=== PATIENT | female | born 1950 | race Caucasian/White ===

== ENCOUNTER 2018-06-18 07:26 | Inpatient (IN) | payer MEDICARE, OTHER, MEDICAID ==
[~2018-06-18] VITALS: Ht 157.5 cm; Wt 73.1 kg
[2018-06-18] VITALS (12 sets, daily range): BP systolic 114–172; BP diastolic 59–93
[2018-06-18 07:47] LABS: URINE BILIRUBIN NEGATIVE (Negative); URINE BLOOD NEGATIVE (Negative); URINE CLARITY CLEAR; URINE COLOR YELLOW; URINE GLUCOSE-RANDOM NEGATIVE (Negative); URINE KETONES NEGATIVE (Negative); URINE LEUKOCYTES-REFLEX NEGATIVE (Negative); URINE NITRITE-REFLEX NEGATIVE (Negative); URINE PROTEIN NEGATIVE (Negative); URINE SPECIFIC GRAVITY <= 1.005 (1.005-1.030); URINE UROBILINOGEN 0.2 E.U./dl (0.2-1.0)
[2018-06-18] MEDS ORDERED: ALDACTONE100 MG PO (08:10)
[2018-06-18] MEDS ORDERED: ASPIR 8181 MG PO (08:10)
[2018-06-18] MEDS ORDERED: LASIX 40 MG TAB40 M2 PO (08:11)
[2018-06-18 08:12] LABS: BE 3.7 mmol/L (-2 to +3); PCO2 26.6 mmHg (35.0-45.0); PO2 92.9 mmHg (75.0-100.0); pH 7.592 (7.340-7.450)
[2018-06-18] MEDS ORDERED: DILTIAZEM ER120 M1 PO (08:12)
[2018-06-18] MEDS ORDERED: XIFAXAN550 M1 PO (08:12)
[2018-06-18] MEDS ORDERED: FOLIC ACID1 MG PO (08:16)
[2018-06-18] MEDS ORDERED: PEPCID40 MG PO (08:16)
[2018-06-18] MEDS ORDERED: LACTULOSE10 GM/152 PO (08:17)
[2018-06-18] MEDS ORDERED: TYLENOL325 MG PO (08:18)
[2018-06-18] MEDS ORDERED: NORCO 5-325 TA1 EACH PO (08:19)
[2018-06-18] MEDS ORDERED: VITAMINC500 PO (08:19)
[2018-06-18 08:20] LABS: ABSOLUTE LYMPHOCYTES 0.8 thou/uL (0.8-5.3); ABSOLUTE MONOCYTES 0.9 thou/uL (0.0-1.2); ABSOLUTE NEUTROPHILS 6.8 thou/uL (1.6-8.1); BASOPHILS 0.6 %; EOSINOPHILS 0.2 %; HEMATOCRIT 27.1 % (37.0-47.0); HEMOGLOBIN 8.9 gm/dL (12.0-15.0); LYMPHOCYTES 9.7 %; MCH 33.7 pg (26.0-34.0); MCV 101.9 fL (80.0-100.0); MONOCYTES 10.3 %; MPV 10.9 fl. (7.2-11.1); NUCLEATED RBCS 0 /100WBC; PLATELET COUNT* 155 thou/uL (150-400); POLYS 79.2 %; RBC 2.66 mil/uL (4.20-5.00); RDW-CV 24.3 % (10.5-14.5); WBC 8.6 thou/uL (4.0-11.0)
[2018-06-18] MEDS ORDERED: MAGIC MOUTHWASH SWISH&SPIT (08:23)
[2018-06-18] MEDS ORDERED: JUVEN PACKET1 EAC1 PO (08:24)
[2018-06-18 08:54] LABS: ALBUMIN 3.3 g/dL (3.4-5.0); CALCIUM 9.6 mg/dL (8.5-10.1); CREATININE 1.5 mg/dL (0.6-1.3); PHOSPHORUS* 3.6 mg/dL (2.5-4.9); POTASSIUM 3.8 mmol/L (3.5-5.1); TOTAL BILIRUBIN 4.7 mg/dL (<0.1-1.0); TOTAL PROTEIN 6.5 g/dL (6.4-8.2)
[2018-06-18 09:08] LABS: PLATELET ESTIMATE ADEQUATE
[2018-06-18 09:09] LABS: ANISOCYTOSIS 1+; MACROCYTES 1+; POIKILOCYTOSIS 1+
[2018-06-18 09:11] LABS: APTT 48.3 Seconds (25.0-31.3); INR 1.7; PROTIME 17.3 Seconds (9.20-11.50)
--- NOTE | 2018-06-18 10:54 | NUR ---
CENTRAL LINE PLACED BY DR. CALLE AND PLACEMENT WAS VERIFIED VIA XRAY.
--- NOTE | 2018-06-18 10:56 | NUR ---
ED RN JADON HAS GIVEN REPORT TO ICU. PT TO BE ADMITTED IN ICU ROOM 2. PT IS NOW IN ULTRASOUND, AND [employer] CARMELA WILL TAKE PT TO ICU 2 WHEN FINISHED.
--- NOTE | 2018-06-18 11:23 | NUR ---
Report received from ED nurse. Patient in US then going to CT before arriving to unit.
--- NOTE | 2018-06-18 16:36 | EKG ---
[place] [address] ELECTROCARDIOGRAM REPORT Name: LEONARD CHE Room: [address] ADM IN M.R.#: [id number] Admission: 06/18/18 Attend Phys: Rossy Mix MD Discharge: Date of : 52 Report #: [id number] THIS REPORT FOR: //name// [facility] ED Test Date: 2018-06-18 Test Time: 07:35:11 Pat Name: LEONARD CHE Department: Room: [facility] Gender: F Window And Siding Craftsman: Rachelle CHAVES : 1950 Requested By: Mee Pereyra Order Number: [id number] MD: Romel Wetzel Measurements Intervals [place] Rate: 97 P: 70 NH: 164 QRS: -45 QRSD: 133 T: 88 QT: 387 QTc: 492 Interpretive Statements Sinus tachycardia Ventricular premature complex RBBB and LAFB Abnrm T, consider ischemia, anterolateral lds No previous ECG available for comparison Electronically Signed On 06-18-2018 16:36:12 CDT by Romel Wetzel [email or web address] <ELECTRONICALLY SIGNED> By: oRmel Wetzel MD, [facility] 06/18/18 1636 [id number] 0735 Romel Wetzel MD, [facility] /EPI
[2018-06-18 16:49] LABS: BF RBC <1000 /mm3; TOTAL CELL COUNT 89 /mm3
[2018-06-18 16:55] LABS: AMYLASE 11 U/L (25-115); LIPASE 24 U/L (73-393)
[2018-06-18 16:57] LABS: CLARITY SLIGHTLY HAZY; TOTAL VOLUME 1550 ml
--- NOTE | 2018-06-18 17:00 | NUR ---
RECIEVED REPORT FROM BETH BOWER AT 5384. PATIENT REMAINS CONFUSED, DOES NOT FOLLOW COMMANDS. THIS RN AGREES WITH PREVIOUS ASSESSMENT.
[2018-06-18 17:01] LABS: BF LYMPHOCYTES 40 %; BF MONOCYTES 14 %; BF POLYS 46 %; BF TISSUE 13 /100 WBC
[2018-06-18 17:03] LABS: SOURCE ASCITES
[2018-06-19] VITALS (20 sets, daily range): BP systolic 109–160; BP diastolic 65–92
[2018-06-19 04:07] LABS: ABSOLUTE LYMPHOCYTES 0.9 thou/uL (0.8-5.3); ABSOLUTE MONOCYTES 0.6 thou/uL (0.0-1.2); ABSOLUTE NEUTROPHILS 4.7 thou/uL (1.6-8.1); BASOPHILS 0.4 %; EOSINOPHILS 0.2 %; HEMATOCRIT 22.6 % (37.0-47.0); HEMOGLOBIN 7.6 gm/dL (12.0-15.0); LYMPHOCYTES 13.7 %; MCH 34.3 pg (26.0-34.0); MCHC 33.8 g/dL (28.0-37.0); MCV 101.5 fL (80.0-100.0); MONOCYTES 9.7 %; MPV 10.9 fl. (7.2-11.1); NUCLEATED RBCS 0 /100WBC; PLATELET COUNT* 126 thou/uL (150-400); RBC 2.23 mil/uL (4.20-5.00); RDW-CV 24.5 % (10.5-14.5); WBC 6.3 thou/uL (4.0-11.0)
[2018-06-19 04:54] LABS: ALBUMIN 2.9 g/dL (3.4-5.0); CALCIUM 8.6 mg/dL (8.5-10.1); CREATININE 1.4 mg/dL (0.6-1.3); DIRECT BILIRUBIN 1.5 mg/dL (<0.1-0.3); POTASSIUM 3.3 mmol/L (3.5-5.1); TOTAL BILIRUBIN 3.7 mg/dL (<0.1-1.0); TOTAL PROTEIN 5.5 g/dL (6.4-8.2)
--- NOTE | 2018-06-19 06:34 | NUR ---
REPORT RECEIVED FROM OFF GOING SHIFT, AND CARE ASSUMMED. PT HAS EYES OPEN DOES NOT RESPOND TO COMMANDS, AND CONSTANTLY MOANS. AARON INTACT AND PATENT DRAINING ORANGE URINE TO BEDSIDE BAG. MONITORS INTACT WITH ALARMS SET. NO CHANGE DURING SHIFT. WILL CONTINUE TO MONITOR
[2018-06-19 06:55] LABS: ANISOCYTOSIS 2+; PLATELET ESTIMATE DECREASED
--- NOTE | 2018-06-19 17:54 | NUR ---
PATIENT BEGINNING TO HAVE LOOSE, LIGHT BROWN, CHUNKY/SOFT STOOLS THIS SHIFT AFTER LACTULOSE ADMINISTRATION. REMAINS CONFUSED, NONVERBAL AT THIS TIME. SON UPDATED BY HOSPITALIST AND GASTROINTESTINAL PHYSICIAN. NO NEW CONCERNS VOICED. HEAD CT COMPLETED TODAY, NEGATIVE.
[2018-06-20] VITALS (26 sets, daily range): BP systolic 117–171; BP diastolic 72–103
[2018-06-20 03:44] LABS: ABSOLUTE LYMPHOCYTES 1.1 thou/uL (0.8-5.3); ABSOLUTE MONOCYTES 0.6 thou/uL (0.0-1.2); ABSOLUTE NEUTROPHILS 3.8 thou/uL (1.6-8.1); BASOPHILS 0.7 %; EOSINOPHILS 0.6 %; HEMATOCRIT 23.8 % (37.0-47.0); HEMOGLOBIN 7.9 gm/dL (12.0-15.0); LYMPHOCYTES 19.2 %; MCH 34.1 pg (26.0-34.0); MCHC 33.1 g/dL (28.0-37.0); MCV 102.8 fL (80.0-100.0); MONOCYTES 10.6 %; MPV 10.7 fl. (7.2-11.1); NUCLEATED RBCS 0 /100WBC; PLATELET COUNT* 145 thou/uL (150-400); POLYS 68.9 %; RBC 2.32 mil/uL (4.20-5.00); RDW-CV 24.4 % (10.5-14.5); WBC 5.5 thou/uL (4.0-11.0)
[2018-06-20 03:48] LABS: CALCIUM 8.8 mg/dL (8.5-10.1); CREATININE 1.5 mg/dL (0.6-1.3); MAGNESIUM 1.7 mg/dL (1.8-2.4); POTASSIUM 4.2 mmol/L (3.5-5.1)
[2018-06-20 06:21] LABS: BURR CELLS 1+; OVALOCYTES 1+; TARGET CELLS 1+
[2018-06-20 06:22] LABS: ANISOCYTOSIS 2+
--- NOTE | 2018-06-20 06:27 | NUR ---
REPORT RECEIVED FROM OFF GOING SHIFT AND CARE ASSUMMED. RESP REG AND UNLABORED SKIN W/D. PT HAS EYES CLOSED, MOANING, WILL NOT FOLLOW COMMANDS. MONITORS INTACT AND ALARMS SET. AARON INTACT AND PATENT DRAINING ORANGE URINE. PT HAS HAD TO SOFT BROWN BMS THIS SHIFT. PT MOVED LEGS UP AND DOWN THIS SHIFT, BUT STILL UNABLE TO FOLLOW COMMANDS. VSS AND NO ACUTE CHANGES THIS SHIFT. WILL CONTINU EOT MONITOR.
[2018-06-20 10:07] LABS: BODY FLUID AMYLASE 5 U/L (()); BODY FLUID PROTEIN 2.1 g/dL (())
--- NOTE | 2018-06-20 18:27 | NUR ---
PATIENT ALERT AND AWAKE BUT NON RESPONSIVE AT THE BEGINNING OF THE SHIFT. SHE STARTED RESPONDING TO YES AND NO QUESTIONS DURING THE DAY, FULLY RESPONSIVE NOW AND CAN ASK WATER FOR HERSELF. SHE IS ORIENTED TO SELF BUT NOT TO TIME, PLACE AND SITUATION. REORIENTATION PROVIDED. NG PLACEMENT FAILED IT COULDN'T PASS BEYOND DISTAL ESOPHAGUS PER XR KUB. EGD AND NG PLACEMENT PLANNED FOR TOMORROW. 3 BOWEL MOVEMENTS THIS SHIFT. 1/2 NS RUNNING AT 80MLS/HR. TPN TO BE STARTED TONIGHT.
[2018-06-21] VITALS (12 sets, daily range): BP systolic 115–149; BP diastolic 72–90
[2018-06-21 04:24] LABS: ABSOLUTE EOSINOPHILS 0.1 thou/uL (0.0-0.7); ABSOLUTE LYMPHOCYTES 0.9 thou/uL (0.8-5.3); ABSOLUTE MONOCYTES 0.5 thou/uL (0.0-1.2); ABSOLUTE NEUTROPHILS 3.3 thou/uL (1.6-8.1); ALBUMIN 2.7 g/dL (3.4-5.0); CALCIUM 8.5 mg/dL (8.5-10.1); CREATININE 1.4 mg/dL (0.6-1.3); EOSINOPHILS 1.2 %; HEMATOCRIT 20.4 % (37.0-47.0); MAGNESIUM 2.2 mg/dL (1.8-2.4); MCH 33.9 pg (26.0-34.0); MCHC 32.4 g/dL (28.0-37.0); MCV 104.6 fL (80.0-100.0); MONOCYTES 10.2 %; MPV 10.5 fl. (7.2-11.1); NUCLEATED RBCS 0 /100WBC; PLATELET COUNT* 116 thou/uL (150-400); POLYS 69.6 %; POTASSIUM 3.2 mmol/L (3.5-5.1); RBC 1.95 mil/uL (4.20-5.00); TOTAL BILIRUBIN 2.6 mg/dL (<0.1-1.0); TOTAL PROTEIN 5.5 g/dL (6.4-8.2); WBC 4.8 thou/uL (4.0-11.0)
--- NOTE | 2018-06-21 04:37 | NUR ---
REPORT RECEIVED FROM OFF GOING SHIFT. AND CARE ASSUMMED. PT AAOX2. RESP REG AND UNLABORED SKIN W/D. PT IS FOLLOWING SOME COMMANDS. FORGETFUL. MONITORS INTACT AND ALARMS SET. AARON INTACT AND PATENT DRAINING ORANGE URINE TO BEDSIDE BAG. PT DOWNGRADED TO TELEMTRY STATUS AND REPORT GIVEN TO HELEN. PT BEING TRANSFERRED TO ROM 228
[2018-06-21 04:49] LABS: HEMOGLOBIN 6.6 gm/dL (12.0-15.0)
--- NOTE | 2018-06-21 06:23 | NUR ---
RECEIVED PT FROM ICU AT APPROX 0455. PT IS AWAKE AND ORIENTED TO SELF AND PLACE AND SITUATION. PT IS ABLE TO ANSWER SIMPLE QUESTIONS. VSS. NOT IN RESPIRATORY DISTRESS. PLACED ON SAT INSTRUCTOR TRACING SR/ST. MAINTAINED ON NPO, FOR EGD TODAY/ PT ORIENTED TO ROOM SET UP AND CALL LIGHT USE. FALL PRECAUTIONS IN PLACE. HGB: 6.6, RECEIVED ORDER FROM DR MASON TO TRANSFUSE 1 UNIT OF PACKED RED CELLS, AWAITING CROSS AND TYPE RESULT. CLOSELY MONITORED.
[2018-06-21 06:39] LABS: PLATELET ESTIMATE DECREASED
[2018-06-21 06:51] LABS: ANISOCYTOSIS 2+; HYPOCHROMASIA 1+; MACROCYTES 2+; POIKILOCYTOSIS 1+
[2018-06-21 09:23] LABS: SOURCE ABDOMINAL
--- NOTE | 2018-06-21 10:15 | NUR ---
Turing over blood transfusion to Anesthesia at this time.
--- NOTE | 2018-06-21 11:34 | NUR ---
Nutrition: TPN @80mL meets up to 110% of needs, which is a little high. RECOMMEND DECREASING TPN TO 75mL/HR TO MEET 100% OF NEEDS. See RD Assessment Form for details.
--- NOTE | 2018-06-21 11:52 | CON ---
[address] [address] CONSULTATION Name: YANELEONARD Room: [address] IN M.R.#: [id number] Admission: 06/18/18 Attend Phys: Rossy Mix MD Discharge: Date of : 52 Report #: [id number] THIS REPORT FOR: //name// CC: Javier Mix DATE OF SERVICE: 06/18/2018 HISTORY OF PRESENT ILLNESS: This is a pleasant 67-year-old female who was brought in to the intermediate for altered mental status. History has been obtained from the patient's son since the patient is quite altered. The patient's son reports that she initially began having episodes of abdominal distention while living in [place], [place]. The patient would bring his mother into the hospital for evaluation, and they diagnosed her with CHF and diuresed her and discharged her home. She would go back to the hospital within a few days' time. The patient's son then brought her up to [facility] for more detailed evaluation in which hospitalization, she was diagnosed with end-stage liver disease. The patient reports that this end-stage liver disease was thought to be due to use of methotrexate that she had used for her rheumatoid arthritis. The patient at that time was diagnosed with encephalopathy, ascites as well. The patient's son reports that whenever she becomes encephalopathic, it takes about 3-4 days of treatment for her to get better. The patient's son reports that although he is able to afford lactulose, the patient is supposed to be on rifaximin, which he is unable to afford which is resulting in recurrent hospitalizations. The patient's son denies any episodes of hematemesis, hematochezia or recent weight loss. PAST MEDICAL HISTORY: Significant for rheumatoid arthritis and atrial fibrillation. PAST SURGICAL HISTORY: Nonsignificant. SOCIAL HISTORY: The patient's son denies that she ever smoked, took alcohol or any recreational drugs. FAMILY HISTORY: There is no family history of liver disease or colorectal cancer. REVIEW OF SYSTEMS: Unable to obtain because of the patient's mental status. PHYSICAL EXAMINATION: VITAL SIGNS: Temperature 36.6, pulse rate 95, blood pressure 154/85, pulse ox 100% on room air, respirations 19. GENERAL: The patient is somnolent, but responds to voice, is not oriented to time, place or person. HEENT: Pupils are equal, round, reactive [place] [address] CONSULTATION Name: LEONARD CHE Room: [address]#: [id number] Admission: 06/18/18 Attend Phys: Rossy Mix MD Discharge: Date of : 52 Report #: [id number] icterus is present. SKIN: Icterus is also noted on skin exam. There is spider angiomata located on the upper extremities. Mucous membranes are moist. There is no congestion. LUNGS: Clear to auscultation bilaterally. CARDIOVASCULAR: Irregularly irregular. ABDOMEN: Soft, it is distended with positive fluid thrill. EXTREMITIES: Warm and well perfused. There is no edema. SKIN: Warm and dry. LABORATORY DATA: Hemoglobin 7.9, hematocrit 23.8, platelet count 145, MCV 102.8. Sodium 141, potassium 3.8, BUN 23, creatinine 1.5, total bilirubin 4.7. Abdominal paracentesis performed on admission shows a total fluid cell count of 89, ruling out SBP. IMAGING: Abdomen and pelvis CT: This demonstrates marked distention of urinary bladder, moderate compression of L2 with sclerotic margins suggesting chronic changes, atherosclerosis in L4 and L5 associated with spinal stenosis, ascites, diffuse edema, anasarca, severe fatty infiltration of the liver with limited hepatic evaluation, limited umbilical hernia with small amount of gas and bowel extending into the hernia. ASSESSMENT AND PLAN: This is a pleasant 67-year-old female with past medical history of atrial fibrillation, rheumatoid arthritis, was maintained on long-term methotrexate therapy. It appears that this may have caused her cirrhosis. The patient was diagnosed with end-stage liver disease at [facility]. We will need to get further records of this hospitalization for a more detailed evaluation. 1. Encephalopathy. The patient is currently encephalopathic because she is unable to afford her rifaximin while she is at home. The patient is currently unable to swallow, and we were unable to give her rifaximin or lactulose. I would recommend placing an NG tube so that she may be able to take her medications. 2. Ascites. The patient has to be discharged on Lasix 40 and spironolactone 100. Okay to hold off diuresis for now. 3. Varices. Unclear if the patient had an EGD at that time. However, we will obtain records to evaluate this further. 4. HCC surveillance. The patient's CT scan of the abdomen performed during admission did not reveal any hepatic masses. She will need a repeat ultrasound examination every 6 months. 5. End-stage liver disease. The patient has end-stage liver disease with a MELD score of 21 or 22, and she will need to be evaluated at transplant center. Once the patient is over his hospitalization and discharged, I would recommend evaluation at for possible liver transplant. [address] [place] [address] CONSULTATION Name: YANELEONARD Room: [address] IN .R.#: [id number] Admission: 06/18/18 Attend Phys: Rossy Mix MD Discharge: Date of : 52 Report #: [id number] Thank you for this consult. The patient was seen and examined on 06/18/2018. This note reflects that day of service. <ELECTRONICALLY SIGNED> By: Arnaldo Stevens MD 06/21/18 1152 1646 [id number] Stevens MD /nt
--- NOTE | 2018-06-21 13:18 | NUR ---
MET WITH PT TO DISCUSSED HOME SITUATION/DC PLANNING. SON/OTILIO WHO IS DPOA ALSO IN ROOM. PT ADMITTED FROM [facility], PLAN IS FOR HER TO RETURN THERE AT DC. CONFIRMED WITH [facility]. THEY WILL NEED UPDATED THERAPY NOTES AND PLAN PRIOR TO ACCEPTING BACK. PT HAD BEEN IN SNF SINCE 06/11, WAS AT [facility] ON THE [facility] PRIOR THAT. PT LIVES IN [place]T IN HER SON'S HOME IN [place]. SHE IS NORMALLY INDEPENDENT, USES CANE OR WALKER. PT HAS 3 SONS. OTILIO STATES HE IS DPOA, THINKS THERE IS A COPY AT [facility], HAVE ASKED SUPERINTENDENT INSTITUTION TO CHECK ON. WILL FOLLOW
--- NOTE | 2018-06-21 19:27 | NUR ---
RECEIVED REPORT FROM KEEGAN CAMPOS. ASSUMED CARE OF PT AROUND 0730. PT AWAKE, A&O X4 BUT FORGETFUL. VSS. DIRECTOR PARK IN PLACE TRACING SR TO SR WITH BBB WITH NO CHANGES THIS SHIFT. AM ASSESSMENT AND VITALS COMPLETED CHARTED. LEFT TRIPLE LUMEN SUBCLAVIAN PICC LINE INTACT. TPN INFUSING. MEDS PER EMAR. 1 UNIT BLOOD TRANSFUSED THIS AM, FINISHED IN PACU. NG TUBE PLACED IN PACU DURING EGD THIS AM. NG TUBE USED FOR MEDICATIONS PER ORDERD. AARON REMAINS IN PLACE TO DD, URINE DAVE. PT WENT FOR U/S PARACENTESIS THIS AFTERNOON, SEE REPORT. NO BMS THIS SHIFT. SON AT BEDSIDE FOR A WHILE THIS AFTERNOON. PT REMAINS NPO. SPEECH EVAL ORDERED. MOUTH SWABS OFFERED. PT BELIEVES DENTURES TO BE LOST, THINKS THEY WERE LEFT IN ICU - ICU CONTACTED, DENTRUES NOT FOUND IN ICU. PT BEING TURNED Q2HRS FOR COMFORT. SKIN TEAR TO LEFT ELBOW - DRESSING CDI. PT CURRENTLY RESTING IN BED. CALL LIGHT IS WITHIN REACH. HOURLY ROUNDING PERFORMED. FALL PRECAUTIONS IN PLACE.
[2018-06-21 19:59] LABS: HEMATOCRIT 26.1 % (37.0-47.0)
[2018-06-21 20:02] LABS: HEMOGLOBIN 8.9 gm/dL (12.0-15.0)
[2018-06-22] VITALS: BP 143/94
[2018-06-22 04:00] VITALS: BP 139/83
--- NOTE | 2018-06-22 05:26 | NUR ---
ASSUMED PT CARE AT APPROX 1930. PT IS AWAKE AND ORIENTED X4, WITH PERIODS OF FORGETFULNESS AND CONFUSION. VSS ON ROOM AIR. DRUM HANDLER IN PLACE TRACING SR BBB. MAINTAINED ON NPO. NG TUBE INTACT. POSITION CHANGES DONE Q2H. MAINTAINED CLEAN AND DRY. POST PARACENTESIS SITE WITH SMALL AMOUNT OF SEROUS DISCHARGE. FALL PRECAUTIONS IN PLACE. CALL LIGHT WITHIN REACH. HOURLY ROUNDING DONE FOR PT SAFETY.
[2018-06-22 05:54] LABS: ABSOLUTE EOSINOPHILS 0.2 thou/uL (0.0-0.7); ABSOLUTE LYMPHOCYTES 1.2 thou/uL (0.8-5.3); ABSOLUTE MONOCYTES 0.5 thou/uL (0.0-1.2); ABSOLUTE NEUTROPHILS 3.1 thou/uL (1.6-8.1); BASOPHILS 0.9 %; EOSINOPHILS 3.3 %; HEMATOCRIT 25.3 % (37.0-47.0); HEMOGLOBIN 8.6 gm/dL (12.0-15.0); LYMPHOCYTES 23.6 %; MCH 33.7 pg (26.0-34.0); MCHC 33.9 g/dL (28.0-37.0); MONOCYTES 9.7 %; NUCLEATED RBCS 0 /100WBC; PLATELET COUNT* 100 thou/uL (150-400); POLYS 62.5 %; RBC 2.55 mil/uL (4.20-5.00); RDW-CV 23.8 % (10.5-14.5); WBC 4.9 thou/uL (4.0-11.0)
[2018-06-22 05:55] LABS: MCV 99.2 fL (80.0-100.0); PREALBUMIN 5.2 mg/dL (18.0-35.7)
[2018-06-22 06:00] LABS: ALBUMIN 2.7 g/dL (3.4-5.0); CALCIUM 8.6 mg/dL (8.5-10.1); CREATININE 1.5 mg/dL (0.6-1.3); POTASSIUM 4.4 mmol/L (3.5-5.1); TOTAL BILIRUBIN 2.1 mg/dL (<0.1-1.0); TOTAL PROTEIN 5.6 g/dL (6.4-8.2)
[2018-06-22 06:40] LABS: ANISOCYTOSIS 2+; OVALOCYTES 1+; POLYCHROMASIA 1+; TARGET CELLS 1+
[2018-06-22 08:00] VITALS: BP 137/89
[2018-06-22 12:57] VITALS: BP 134/91
--- NOTE | 2018-06-22 13:47 | NUR ---
SWALLOW EVALUATION COMPLETED. RECOMMEND REGULAR/THIN DIET WHEN ABLE TO TOLERATE PO DIET MEDICALLY. IT IS ALSO SAFE TO ADMINISTER MEDS ORALLY.
[2018-06-22 14:47] LABS: INR 1.8; PROTIME 18.3 Seconds (9.20-11.50)
--- NOTE | 2018-06-22 15:23 | NUR ---
WAS ASKED BY DR CENTENO AROUND 1230 TO ARRANGE TRANSFER TO [facility]/[place] PT WAS JUST THERE AND HAS METAL NUMERICAL TOOL PROGRAMMER THERE. CALLED [facility] ONE CALL/MIRIAM. FAXED FACE SHEET. HEARD BACK FROM HER THAT PT HAS BEEN ACCEPTED. SHE WAS CONTACTING AND CHECKING ON BED AVAILABILITY. NOT SURE IF THEY WOULD HAVE BED TODAY BUT WILL CALL BACK TO CM OR TO NURSING UNIT. UPDATED PT AND SON, IN AGREEMENT. COBRA FORM AND AMBULANCE FORMS STARTED AND IN FRONT OF CHART WITH HIGHLIGHTED AREAS THAT NEED COMPLETED.
[2018-06-22 16:59] VITALS: BP 123/80
[2018-06-22 20:00] VITALS: BP 141/92
[2018-06-23] VITALS: BP 148/86
[2018-06-23 04:00] VITALS: BP 120/79
--- NOTE | 2018-06-23 06:00 | NUR ---
ASSUMED PT CARE AT [facility] 1930. PT IS AWAKE AND ORIENTED X 4. VSS ON ROOM AIR. SENIOR WEB SERVICES DEVELOPER IN PLACE TRACING SR BBB. RE-ASSESSMENT DONE AND CHARTED. FOR TRANSFER TO [facility],STILL AWAITING FOR AN AVAILABLE ROOM. PT WAS ABLE TO SLEEP MOST OF THE NIGHT. POSTIION CHANGES DONE Q2H. PICC LINE INTACT. AARON CATH INTACT AND PATENT. CALL LIGHT WITHIN REACH. HOURLY ROUNDING DONE FOR PT SAFETY.
[2018-06-23 07:30] VITALS: BP 126/80
--- NOTE | 2018-06-23 09:20 | NUR ---
SPOKE WITH [facility]. THEY STILL HAVE PT ON A WAIT LIST AND ARE WAITING FOR DISCHARGES TODAY.
[2018-06-23 12:12] VITALS: BP 130/84
--- NOTE | 2018-06-23 13:07 | PATH ---
[address] [address] PATHOLOGY RPT PROCEDURE Name: LEONARD CHE Room: [address] IN [facility]#: [id number] Admission: 06/18/18 Date of : 52 Discharge: Report #: [id number] Path Case #: [id number] Note [facility] Accession Number: [id number] TESTS RESULT FLAG UNITS REF RANGE LAB Clinician Provided Cytology Information No. of containers..01 Other (Miscellaneous) Source: ASCITES DIAGNOSIS: 02 ASCITES NEGATIVE FOR MALIGNANT CELLS. MESOTHELIAL CELLS ARE PRESENT. THIS INTERPRETATION INCLUDES EVALUATION OF A CELL BLOCK. Signed out by: 02 Yury Prieto MD, Pathologist NPI- [id number] Performed by: 01 Yen Morejon, Cigarette Machines Mechanic ([facility]) Gross description: 01 30ML, YELLOW, CLEAR /LCS FLAG LEGEND: L-Low Normal,H-High Normal,LL-Alert Low,HH-Alert High <-Panic Low,>-Panic High,A-Abnormal,AA-Critical Abnormal Performed at: [address] [place] [address] Nicholas Haq MD, [address] [address] Shiva Peñaloza MD, Specimen Comment: A courtesy copy of this report has been sent to Specimen Comment: [phone], . Specimen Comment: Report sent to / DR ARGUETA Specimen Comment: A duplicate report has been generated due to demographic updates. Performed at: [address], [place], [place] [id number] MD Nicholas Haq MD Phone: [phone]
[2018-06-23 16:20] VITALS: BP 130/88
[2018-06-23 20:00] VITALS: BP 124/87
--- NOTE | 2018-06-23 23:49 | NUR ---
ASSUMED PT CARE AT APPROX 193. PT IS AWAKE AND ORIENTED X4. VSS ON ROOM AIR. COTTON BAG SEWER IN PLACE TRACING SR BBB. PT C/O NAUSEA, RELIEVED BY ZOFRAN GIVEN PER APR. PT IS FOR TRANSFER TO [facility]. AT 2109, KUMAR FROM [facility] CALLED TO SAY A ROOM IS AVAILABLE. CALLS ARE MADE TO INFORM PT'S DPOA OTILIO CHE BUT ONLY WAS ABLE TO REACH THE VOICE MAIL MESSAGE LEFT TO OTILIO THAT PT IS TRANSFERING TO [facility]. PT SENT TO [facility] AT APPROX 2228 ACCOMPANIED BY EMS. COTTON BAG SEWER REMOVED. BELONGINGS SENT WITH PT.
== END 2018-06-23 22:40 | disposition short-term general hospital (02) | DRG 871 ==
LOC: M.ERS 07:26 → M.2W 09:40 → M.TBA-ER 09:40 → M.ICU 09:40 → M.2W 06-21 04:54
PROVIDERS: Internal Medicine; Personal Emergency Response Attendant; ADMIT Family Medicine
PROC: 0W9G3ZZ Drainage of Peritoneal Cavity, Percutaneous Approach (ICD-10-PCS; principal; 2018-06-18)
PROC: 02HV33Z Insertion of Infusion Device into Superior Vena Cava, Percutaneous Approach (ICD-10-PCS; principal; 2018-06-18)
PROC: 0DJ08ZZ Inspection of Upper Intestinal Tract, Via Natural or Artificial Opening Endoscopic (ICD-10-PCS; 2018-06-21)
PROC: 0W9G3ZZ Drainage of Peritoneal Cavity, Percutaneous Approach (ICD-10-PCS; 2018-06-21)
PROC: 0DH68UZ Insertion of Feeding Device into Stomach, Via Natural or Artificial Opening Endoscopic (ICD-10-PCS; 2018-06-21)
PROC: 30233N1 Transfusion of Nonautologous Red Blood Cells into Peripheral Vein, Percutaneous Approach (ICD-10-PCS; 2018-06-21)
DX: A41.9 Sepsis, unspecified organism (principal); G93.41 Metabolic encephalopathy; J69.0 Pneumonitis due to inhalation of food and vomit; E43 Unspecified severe protein-calorie malnutrition; E72.20 Disorder of urea cycle metabolism, unspecified; R65.20 Severe sepsis without septic shock; M06.9 Rheumatoid arthritis, unspecified; I83.90 Asymptomatic varicose veins of unspecified lower extremity; K72.90 Hepatic failure, unspecified without coma; I11.0 Hypertensive heart disease with heart failure; J44.9 Chronic obstructive pulmonary disease, unspecified; I48.0 Paroxysmal atrial fibrillation; K21.9 Gastro-esophageal reflux disease without esophagitis; G47.33 Obstructive sleep apnea (adult) (pediatric); I73.9 Peripheral vascular disease, unspecified; K70.31 Alcoholic cirrhosis of liver with ascites; I50.9 Heart failure, unspecified; D64.9 Anemia, unspecified; D69.6 Thrombocytopenia, unspecified; K75.81 Nonalcoholic steatohepatitis (NASH); D53.1 Other megaloblastic anemias, not elsewhere classified; Z68.29 Body mass index [BMI] 29.0-29.9, adult; Z79.82 Long term (current) use of aspirin; Z79.899 Other long term (current) drug therapy; Z98.84 Bariatric surgery status